=== PATIENT | female | born 1995 | race Caucasian/White ===

== ENCOUNTER 2019-09-27 17:41 | Inpatient (IN) | payer OTHER ==
[~2019-09-27] VITALS: Ht 162.6 cm; Wt 89.7 kg
[2019-09-27] VITALS (104 sets, daily range): BP systolic 127–135; BP diastolic 81–93; PULSE 66–88; TEMP 98.8–98.9; O2SAT 85–100
[2019-09-27 18:26] LABS: ACETAMINOPHEN < 10 ug/mL (10-30); ALANINE AMINOTRANSFERASE 33 U/L (9-52); ALBUMIN 4.6 gm/dL (3.5-5.0); ALCOHOL(ethanol),MEDICAL < 10 mg/dL; ALKALINE PHOSPHATASE 86 U/L (50-136); ANION GAP 10 mmol/L (7-16); AST,SGOT 46 U/L (15-37); BILIRUBIN,TOTAL 0.3 mg/dL (0.0-1.0); BLOOD UREA NITROGEN 5 mg/dL (7-17); CALCIUM 9.6 mg/dL (8.4-10.2); CARBON DIOXIDE 26 mmol/L (22-30); CHLORIDE 103 mmol/L (98-107); CREATININE, serum 0.53 (0.52-1.25); GLUCOSE 102 mg/dL (74-106); POTASSIUM 3.4 mmol/L (3.4-5.0); SALICYLATE < 1.0 mg/dL; SODIUM 139 mmol/L (137-145)
[2019-09-27 18:39] LABS: BASO # 0.1 (0.0-0.2); BASO % 0.9 % (0.0-2.0); EOS # 0.2 (0.0-0.7); EOS % 1.4 % (0-4.0); GRAN # 5.5 (1.4-6.5); GRAN % 51.4 % (42.2-75.2); HEMATOCRIT 41.8 % (37.0-47.0); HEMOGLOBIN 14.2 g/dl (12.5-16.0); LYMPH # 4.1 (1.2-3.4); MEAN CELL VOLUME 91 fl (80.0-100.0); MEAN CORPUSCULAR HEMOGLOBIN 31 pg (27.0-31.0); MEAN CORPUSCULAR HGB CONC 34 g/dl (33.0-37.0); MEAN PLATELET VOLUME 9.7 fl (7.4-10.4); MONO # 0.8 (0.1-0.6); MONO % 7.7 % (1.7-9.3); PLATELET COUNT 290 K/mm3 (130-400); RED BLOOD COUNT 4.58 M/mm3 (4.10-5.30)
[2019-09-27 18:49] LABS: VALPROIC ACID (DEPAKENE) < 10.0 ug/mL (50.0-100.0)
[2019-09-27 18:58] LABS: COLLECTION METHOD CLEAN CATCH
[2019-09-27 19:04] LABS: PH 6 (5-8); SQUAMOUS EPITHELIAL 0-2 /hpf; URINE APPEARANCE Clear; URINE BACTERIA None Seen /hpf; URINE BILIRUBIN Negative (NEGATIVE); URINE BLOOD Negative (NEGATIVE); URINE COLOR Straw; URINE GLUCOSE Negative (NEGATIVE); URINE KETONE Negative (NEGATIVE); URINE LEUKOCYTE ESTERASE Negative (NEGATIVE); URINE NITRATE Negative (NEGATIVE); URINE PROTEIN(semi-quant) Negative (NEGATIVE); URINE RBC 0-2 /hpf; URINE UROBILINOGEN Negative (NEGATIVE)
[2019-09-27 19:07] LABS: MAGNESIUM 1.9 mg/dL (1.6-2.3); PHOSPHOROUS 3.5 mg/dL (2.5-4.5)
[2019-09-27 19:12] LABS: TRICYCLIC ANTIDEPRESS URINE NEGATIVE
[2019-09-27 21:04] LABS: CALCIUM 9.6 mg/dL (8.4-10.2); CREATININE, serum 0.56 (0.52-1.25); POTASSIUM 3.4 mmol/L (3.4-5.0)
--- NOTE | 2019-09-27 21:30 | NUR ---
PT ARRIVED VIA STRETCHER FROM ER NURSE, KALE. PT STABLE AND SPOUSE IS WITH HER.
--- NOTE | 2019-09-27 22:21 | NUR ---
PT IN BED LAYING DOWN TRYING TO SLEEP, STATES SHE IS VERY TIRED.
[2019-09-28] VITALS (515 sets, daily range): BP systolic 102–129; BP diastolic 53–86; PULSE 59–72; TEMP 97.8–98.6; O2SAT 90–100
--- NOTE | 2019-09-28 00:24 | NUR ---
PT IS IN BED, SLEEPING COMFORTABLY.
[2019-09-28 01:13] LABS: ANION GAP 9 mmol/L (7-16); BLOOD UREA NITROGEN 3 mg/dL (7-17); CALCIUM 9.4 mg/dL (8.4-10.2); CARBON DIOXIDE 24 mmol/L (22-30); CHLORIDE 107 mmol/L (98-107); CREATININE, serum 0.44 (0.52-1.25); GLUCOSE 89 mg/dL (74-106); POTASSIUM 4.2 mmol/L (3.4-5.0); SODIUM 140 mmol/L (137-145)
[2019-09-28 01:20] LABS: VALPROIC ACID (DEPAKENE) < 10.0 ug/mL (50.0-100.0)
--- NOTE | 2019-09-28 02:25 | NUR ---
POISON CONTROL CALLED AND WAS UPDATED ON PATIENTS STATUS. SAID PATIENT WAS CLEARED TO SEE PSYCH NOW. CALLED KENNA WATSON TO RELAY THAT INFORMATION. WILL GET MORE EKG AND BMP DONE IN THE MORNING.
[2019-09-28 05:03] LABS: BASO # 0.1 (0.0-0.2); BASO % 0.9 % (0.0-2.0); EOS # 0.2 (0.0-0.7); EOS % 1.7 % (0-4.0); GRAN # 6.4 (1.4-6.5); GRAN % 56.9 % (42.2-75.2); HEMATOCRIT 41.8 % (37.0-47.0); LYMPH # 3.6 (1.2-3.4); LYMPH % 32.2 % (20.0-51.0); MEAN CELL VOLUME 94 fl (80.0-100.0); MEAN CORPUSCULAR HEMOGLOBIN 32 pg (27.0-31.0); MEAN CORPUSCULAR HGB CONC 34 g/dl (33.0-37.0); MEAN PLATELET VOLUME 9.8 fl (7.4-10.4); MONO # 0.9 (0.1-0.6); MONO % 7.9 % (1.7-9.3); PLATELET COUNT 284 K/mm3 (130-400); RED BLOOD COUNT 4.44 M/mm3 (4.10-5.30); REDCELL DISTRIBUTION WIDTH-CV 13.2 % (11.5-14.5)
[2019-09-28 05:17] LABS: ALBUMIN 4.1 gm/dL (3.5-5.0); BILIRUBIN,TOTAL 0.5 mg/dL (0.0-1.0); CALCIUM 8.9 mg/dL (8.4-10.2); CREATININE, serum 0.49 (0.52-1.25); POTASSIUM 4.1 mmol/L (3.4-5.0); TOTAL PROTEIN 7.2 gm/dL (6.4-8.2)
--- NOTE | 2019-09-28 07:11 | NUR ---
Report recieved from SHERIE Corral.
--- NOTE | 2019-09-28 07:15 | NUR ---
Pt sleeping quietly in bed. Denies pain or any discomforts. Denies need for AM care or voiding needs. Will continue to monitor.
--- NOTE | 2019-09-28 08:00 | NUR ---
Shift assessment complete at this time. Plan of care reviewed at bedside with patient. Additional time taken to address any other needs or concerns. Vitals stable at this time. Pt denies pain or any other discomforts. Pt denies thoughts of depression, suicide, or ideations. Bed in low position, Level III suicide precautions in place. Will continue to monitor.
--- NOTE | 2019-09-28 09:33 | NUR ---
Hospitalist medically cleared the patient and patient is to be screen by [facility]. CONTACT LENS BLOCKER student contacted [facility] screener at . Herminia from [facility] requested HNP and facesheet be faxed to . CONTACT LENS BLOCKER student faxed information. consumer services consultant will continue to follow.
--- NOTE | 2019-09-28 11:23 | NUR ---
Silvana from [facility] presented to do screen. business services tech will continue to follow.
--- NOTE | 2019-09-28 12:00 | NUR ---
Shift assessment complete at this time. No changes from previous assessment. Vitals stable at this time. Pt denies pain or any other discomforts. Bed in low position, call light within reach. Will continue to monitor.
--- NOTE | 2019-09-28 13:38 | NUR ---
TABLE ASSEMBLER student met with the patient to discuss a discharge plan. The patient lives in [place] with her . The patient does not use DME and reports independence with ADLs. The patient's PCP is Dr. Yang and patient receives medications from [facility] in [place] with no difficulties. The patient does not have advanced directives in the EMR and was not interested in a DPOA-HC form. The patient plans to return home with her providing transportation. The patient's nurse reports that the patient will discharge with a safety plan that [facility] assisted with. There are no additional needs at this time.
== END 2019-09-28 16:36 | disposition home or self-care (01) | DRG 918 ==
LOC: COL.ER 17:41 → ICU 19:03
PROVIDERS: Emergency Medicine; Nurse Practitioner Family; ADMIT Hospitalist
DX: T45.0X2A Poisoning by antiallergic and antiemetic drugs, intentional self-harm, initial encounter (principal); T43.592A Poisoning by other antipsychotics and neuroleptics, intentional self-harm, initial encounter; T42.6X2A Poisoning by other antiepileptic and sedative-hypnotic drugs, intentional self-harm, initial encounter; T43.222A Poisoning by selective serotonin reuptake inhibitors, intentional self-harm, initial encounter; F43.10 Post-traumatic stress disorder, unspecified; F31.9 Bipolar disorder, unspecified; E87.6 Hypokalemia; Z91.5 Personal history of self-harm; Z91.041 Radiographic dye allergy status
CPT/HCPCS: 99222-AI; J2405; J3480; J7030

== ENCOUNTER 2020-07-04 11:52 | Outpatient (CLI) | payer OTHER ==
[~2020-07-04] VITALS: Ht 162.6 cm; Wt 100.9 kg
--- NOTE | 2020-07-04 11:35 | NUR ---
Patient arrives ambulatory with complaints of no movement since yesterday at 1500. Patient denies vaginal bleeding, contractions or leaking of fluid. EFM explained and placed. VS obtained. Assessment completed. 1125- Report to Christopher Ashley RN who assumes care of patient.
[2020-07-04 11:54] VITALS: BP 125/74; PULSE 97; TEMP 98.2
[2020-07-04 12:00] VITALS: BP 125/74; PULSE 97; TEMP 98.2
[2020-07-04] MEDS ORDERED: PEPCID 20MG TAB20 MG PO (12:01)
[2020-07-04] MEDS ORDERED: NATURAL IRON65 MG (12:02)
[2020-07-04] MEDS ORDERED: ZOFRAN24 MG PO (12:03)
[2020-07-04] MEDS ORDERED: PRENATAL (12:03)
[2020-07-04] MEDS ORDERED: PROZAC40 MG PO (12:03)
[2020-07-04] MEDS ORDERED: CLARITIN 1010 MG/TAB (12:04)
--- NOTE | 2020-07-04 12:40 | NUR ---
Patient sitting up and given snack/juice. 1323: Patient off monitors and given discharge instructions. Patient agress with plan. Questions answered. 1330: Patient ambulatory off unit with spouse.
== END 2020-07-04 13:30 | disposition home or self-care (01) ==
LOC: LDRO 11:52 → LDR 12:16 → LDRO 13:30
DX: O36.8130 Decreased fetal movements, third trimester, not applicable or unspecified (principal); Z3A.36 36 weeks gestation of pregnancy
CPT/HCPCS: OP